=== PATIENT | female | born 1975 | race Hispanic/Latino ===

== ENCOUNTER 2017-12-15 08:56 | Outpatient (AMBR) | payer MEDICAID, SELFPAY ==
--- NOTE | 2017-12-15 10:19 | PT.ODAYNRPT ---
PT Outpatient Daily Note Date of Service: December 15, 2017 OP Daily Note Visit Reasons: hallux valgus Outpatient Physical Therapy Treatment Date: 12/15/17 Subjective: The big toes feel stronger but has difficulty with pushing off and heel raising Objective: See F/S fortherex MT: STM L incision scar, great toes manual extension/extension 10 holds x7' total Assessment: Improved B great toe extension and flexion strength but L is limited by tissue irritability. Decreased edema of L foot dorsal aspect. Plan: Continue per POC Length of Time (minutes) of Treatment: 30 Minutes Office Procedures PT Procedures PT Date of Service: 12/15/17 Therapeutic Exercise 30 minutes: Yes
== END 2018-01-04 23:59 | disposition home or self-care (01) ==
PROVIDERS: Visit Provider Podiatrist Foot & Ankle Surgery
DX: I10 Essential (primary) hypertension (principal)
CPT/HCPCS: 97110